=== PATIENT | male | born 2000 | race Caucasian/White ===

== ENCOUNTER 2021-12-23 02:07 | Emergency (ER) | payer SELFPAY ==
[~2021-12-23] VITALS: Ht 177.8 cm; Wt 72.6 kg
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
--- NOTE | 2021-12-23 04:09 | NUR ---
Patient discharged to home in stable condition. Written and verbal after care instructions given. Patient verbalizes understanding of instruction.
[2021-12-23 04:10] VITALS: BP 130/60
== END 2021-12-23 04:10 | disposition home or self-care (01) ==
LOC: ER 02:21
DX: S20.222A Contusion of left back wall of thorax, initial encounter (principal); S09.90XA Unspecified injury of head, initial encounter; T62.0X1A Toxic effect of ingested mushrooms, accidental (unintentional), initial encounter; Y08.89XA Assault by other specified means, initial encounter; Y93.89 Activity, other specified; Y92.89 Other specified places as the place of occurrence of the external cause; Y99.8 Other external cause status
CPT/HCPCS: 70450-TC; 73000-TC